=== PATIENT | female | born 1960 | race Caucasian/White ===

== ENCOUNTER 2017-02-27 10:00 | Outpatient (CLI) | payer BC | END 2017-02-27 10:01 | disposition home or self-care (01) | LOC: BICRAD 10:00 | PROVIDERS: ATTEND Family Medicine | DX: S62.91XA Unspecified fracture of right hand, initial encounter for closed fracture (principal); S63.91XA Sprain of unspecified part of right wrist and hand, initial encounter ==

== ENCOUNTER 2017-09-11 10:19 | Outpatient (CLI) | payer BC | END 2017-09-11 10:20 | disposition home or self-care (01) | LOC: BICCT 10:19 | PROVIDERS: ATTEND Allergy & Immunology | DX: H69.92 Unspecified Eustachian tube disorder, left ear (principal); J32.9 Chronic sinusitis, unspecified ==

== ENCOUNTER 2018-01-02 08:22 | Outpatient (CLI) | payer BC ==
--- NOTE | 2018-01-02 11:14 | CT ---
CT ABDOMEN AND PELVIS WITH IV CONTRAST: Date: 01-02-18 Provided Clinical History: Left lower quadrant pain. FINDINGS: The visualized lung bases are free of significant opacity. The liver, spleen, pancreas, kidneys and adrenal glands demonstrate an unremarkable CT appearance. There is no bowel dilatation, inflammatory fat stranding, free fluid or lymph node enlargement appare nt. The uterus is not visualized and presumed surgically absent. The urinary bladder wall appears mil dly thickened, although this may be on the basis of non-distention. No surrounding fat stranding andersen ges are seen. The osseous structures demonstrate no concerning lytic or blastic lesions. IMPRESSION: 1. No definite evidence for an acute process. Prominence of the urinary bladder wall without surround ing fat stranding may be on the basis of non-distention. Correlate with concerns for cystitis. 2. The technologist describes an allergic like reaction after the administration of IV contrast mater ial. Patient was observed and the ordering clinician was notified of the reaction. POS: [facility]
[2018-01-02] MEDS ORDERED: ISOVUE-370 76%-LOCM 1 ML ONE (13:57)
== END 2018-01-02 08:23 | disposition home or self-care (01) ==
LOC: BICCT 08:22
PROVIDERS: ATTEND Family Medicine
DX: R10.84 Generalized abdominal pain (principal)
CPT/HCPCS: 74177

== ENCOUNTER 2018-12-15 10:03 | Outpatient (CLI) | payer BC ==
--- NOTE | 2018-12-15 10:18 | RAD ---
2 view chest: [12/15/2018] Comparion:None available HISTORY: Cough for 2 weeks FINDINGS: Heart and mediastinal contours are grossly unremarkable. No pneumothorax or pleural fluid. No focal consolidation or alveolar edema. IMPRESSION: No acute findings.
== END 2018-12-15 10:04 | disposition home or self-care (01) ==
LOC: BICRAD 10:03
PROVIDERS: ATTEND Family Medicine
DX: R05 Cough (principal)
CPT/HCPCS: 71046

== ENCOUNTER 2019-08-07 12:54 | Outpatient (CLI) | payer BC ==
--- NOTE | 2019-08-07 15:54 | MMO ---
Bilateral MAMMO Bilat Screen [facility]ESTIVEN. CLINICAL HISTORY: Patient is 58 years old and is seen for screening. The patient has no family history of breast cancer. The patient has no personal history of cancer. VIEWS: The views performed were: bilateral craniocaudal with tomosynthesis and bilateral mediolateral oblique with tomosynthesis. FILMS COMPARED: The present examination has been compared to prior imaging studies performed at [facility] on 08/24/2014, 10/05/2015, 11/23/2016 and 08/05/2018. This study has been interpreted with the assistance of computer-aided detection. MAMMOGRAM FINDINGS: The breasts are heterogeneously dense, which could obscure a lesion on mammography. There are no suspicious masses, suspicious calcifications, or new areas of architectural distortion. IMPRESSION: THERE IS NO MAMMOGRAPHIC EVIDENCE OF MALIGNANCY. A ROUTINE FOLLOW-UP MAMMOGRAM IN 1 YEAR IS RECOMMENDED. THE RESULTS OF THIS EXAM WERE SENT TO THE PATIENT. ACR BI-RADS Category 1 - Negative MAMMOGRAPHY NOTE: 1. A negative mammogram report should not delay a biopsy if a dominant of clinically suspicious mass is present. 2. Approximately 10% to 15% of breast cancers are not detected by mammography. 3. Adenosis and dense breasts may obscure an underlying neoplasm. Reported by: BRITTANY LISA MD Electonically Signed: [id number]
== END 2019-08-07 12:55 | disposition home or self-care (01) ==
LOC: BICMAMMO 12:54
PROVIDERS: ATTEND Family Medicine
DX: Z12.31 Encounter for screening mammogram for malignant neoplasm of breast (principal)
CPT/HCPCS: 77063; 77067

== ENCOUNTER 2020-03-03 12:31 | Outpatient (CLI) | payer BC ==
--- NOTE | 2020-03-03 14:36 | RAD ---
EXAM: Chest 2 views: HISTORY: Dyspnea COMPARISON: 12/15/2018 FINDINGS: There is a normal-sized cardiomediastinal silhouette. There is no evidence of consolidation, mass, or pleural effusion. No acute osseous abnormality. IMPRESSION: No evidence of acute cardiopulmonary disease
== END 2020-03-03 12:32 | disposition home or self-care (01) ==
LOC: BICRAD 12:31
PROVIDERS: ATTEND Internal Medicine Pulmonary Disease
DX: R06.00 Dyspnea, unspecified (principal)
CPT/HCPCS: 71046

== ENCOUNTER 2020-08-08 13:37 | Outpatient (CLI) | payer BC | END 2020-08-08 13:38 | disposition home or self-care (01) | LOC: BICMAMMO 13:37 | PROVIDERS: ATTEND Family Medicine | DX: Z12.31 Encounter for screening mammogram for malignant neoplasm of breast (principal) | CPT/HCPCS: 77063; 77067 ==